=== PATIENT | female | born 1955 | race African-American/Black ===

== ENCOUNTER 2024-02-19 12:24 | Emergency (ER) | payer OTHER, SELFPAY ==
[2024-02-19] VITALS (11 sets, daily range): BP systolic 130–162; BP diastolic 66–98; PULSE 78–93; RESP 16–20; TEMP 36.6; O2SAT 98–100; BMI 34.3
--- NOTE | 2024-02-19 12:42 | DI.RAD.S_ITS ---
PROCEDURE: XR KNEE LT 3V INDICATIONS: fall with pain and unable to bear weight. TECHNIQUE: 3 views of the knee were acquired. COMPARISON: None. FINDINGS: Bones: Suggestion of a linear lucency through the medial tibial plateau noted with large joint effusion suggesting a nondisplaced fracture. Mild degenerative changes noted as well. IMPRESSION: Possible nondisplaced tibial plateau fracture and large joint effusion. Consider follow-up CT evaluation. Approved by: Fernando Gayle M.D. on 02/19/2024 at 12:58
--- NOTE | 2024-02-19 12:59 | DI.CT.S_ITS ---
PROCEDURE: CT HEAD/BRAIN WO CON INDICATIONS: fall on thinners TECHNIQUE: Noncontrast 4.5 mm thick angled axial sections acquired from the foramen magnum to the vertex, with coronal and sagittal reformats. For radiation dose reduction, the following was used: automated exposure control, adjustment of mA and/or kV according to patient size. COMPARISON: None. FINDINGS: Image quality: Diagnostic. CSF spaces: Basal cisterns are patent. No extra-axial fluid collections. Ventricles are normal in size and shape. Brain: No midline shift. No intracranial masses or hemorrhage. Hickman-white matter interface is normal. Ovoid 6 mm hypodensity in the right frontal subcortical white matter Skull and face: Calvarium and visualized facial bones are intact, without suspicious lesions. Sinuses: Visualized sinuses and mastoids are clear. IMPRESSION: No acute CT findings. No intracranial hemorrhage or mass effect. Incidental 6 mm ovoid hypodensity in the right frontal subcortical white matter is nonspecific but may reflect old white matter infarct, chronic ischemic change, neuroglial cyst. Consider nonemergent MR evaluation. Approved by: Fernando Gayle M.D. on 02/19/2024 at 13:01
--- NOTE | 2024-02-19 14:05 | ED_ITS ---
HPI - Fall General Chief Complaint: Fall Stated Complaint: GLF on thinners, Hit head Time Seen by Provider: 02/19/24 12:59 Source: patient and family Mode of arrival: Ambulatory Limitations: language barrier History of Present Illness HPI Narrative: Patient has a 68-year-old female. Is [place] speaking. His from the [facility]. Patient's daughter provided translation. Offer the translation line but family and patient was okay with the daughter providing translation. Last evening the patient had a mechanical fall where she did fall and hit her head. Was also having left knee pain. No loss of consciousness. She is on blood thinners. Has had difficulty with ambulating because of left knee pain since then. No other injuries from the event. Related Data Previous Rx's Medication Instructions Recorded hydrocodone 5 mg-acetaminophen 325 1 tab PO Q4-6H PRN pain #14 tabs 02/19/24 mg tablet Allergies Allergy/AdvReac Type Severity Reaction Status Date / Time No Known Drug Allergies Allergy Verified 02/19/24 12:42 Review of Systems Review of Systems Narrative: See HPI Patient History Social History Smoking Status: Never smoker Smoking Status: Never smoker Substance Use Type: does not use Exam Initial Vital Signs Initial Vital Signs: Vital Signs Temperature 97.9 F 02/19/24 12:33 Pulse Rate 89 02/19/24 12:33 Respiratory Rate 16 02/19/24 12:33 Blood Pressure 162/86 H 02/19/24 12:33 Pulse Oximetry 99 02/19/24 12:33 Oxygen Delivery Method Room Air 02/19/24 12:33 HENMT Head: normal to inspection and normocephalic Resp Effort & Inspection: normal respiratory effort Cardio Rate: regular rate Neuro General: patient alert and patient awake Extrem Other: Discomfort with palpation throughout the left knee. Effusion noted in the left knee. Procedures Orthopedic Splinting/Casting Injury #1: Side: left Lower Extremity Injury Location: knee Lower Extremity Immobilizer: knee immobilizer Other Orthopedic Equipment: crutches Post splinting neuro exam: intact Post splinting vascular exam: intact Placed by: Nursing Course Orders Ordered: ED Orders 02/19/24 12:42 XR knee LT 3V Stat 02/19/24 12:59 CT head/brain wo con Stat 02/19/24 14:07 CT LE LT wo con Stat Discontinued Medications Hydrocodone Bitart/Acetaminophen (Hydrocodone/Acet 5/325 Tablet) 1 tab PO NOW ONE Stop: 02/19/24 15:10 Last Admin: 02/19/24 15:21 Dose: 1 tab Documented By: MO Vital Signs Vital signs: Vital Signs - 8 hr 02/19/24 12:33 02/19/24 13:08 02/19/24 13:09 Temperature 97.9 F Pulse Rate 89 93 H 92 H Respiratory Rate 16 Blood Pressure 162/86 H Pulse Oximetry 99 99 99 Oxygen Delivery Method Room Air 02/19/24 13:09 02/19/24 13:15 02/19/24 13:15 Temperature Pulse Rate 87 Respiratory Rate Blood Pressure 146/78 H 141/82 H Pulse Oximetry 100 Oxygen Delivery Method 02/19/24 13:30 02/19/24 13:30 02/19/24 13:45 Temperature Pulse Rate 83 83 Respiratory Rate Blood Pressure 133/76 Pulse Oximetry 100 100 Oxygen Delivery Method 02/19/24 13:45 02/19/24 14:00 02/19/24 14:00 Temperature Pulse Rate 80 Respiratory Rate Blood Pressure 130/66 136/77 Pulse Oximetry 100 Oxygen Delivery Method 02/19/24 14:16 02/19/24 14:16 02/19/24 14:39 Temperature Pulse Rate 86 82 Respiratory Rate Blood Pressure 140/98 H Pulse Oximetry 100 98 Oxygen Delivery Method Room Air 02/19/24 14:40 02/19/24 14:40 Temperature Pulse Rate 83 Respiratory Rate Blood Pressure 143/79 H Pulse Oximetry 100 Oxygen Delivery Method MDM - Fall Imaging Data Extremity x-ray #1: Radiologist's Impression: PROCEDURE: XR KNEE LT 3V INDICATIONS: fall with pain and unable to bear weight. TECHNIQUE: 3 views of the knee were acquired. COMPARISON: None. FINDINGS: Bones: Suggestion of a linear lucency through the medial tibial plateau noted with large joint effusion suggesting a nondisplaced fracture. Mild degenerative changes noted as well. IMPRESSION: Possible nondisplaced tibial plateau fracture and large joint effusion. Consider follow-up CT evaluation. CT scan - head: Radiologist's Impression: PROCEDURE: CT HEAD/BRAIN WO CON INDICATIONS: fall on thinners TECHNIQUE: Noncontrast 4.5 mm thick angled axial sections acquired from the foramen magnum to the vertex, with coronal and sagittal reformats. For radiation dose reduction, the following was used: automated exposure control, adjustment of mA and/or kV according to patient size. COMPARISON: None. FINDINGS: Image quality: Diagnostic. CSF spaces: Basal cisterns are patent. No extra-axial fluid collections. Ventricles are normal in size and shape. Brain: No midline shift. No intracranial masses or hemorrhage. Hickman-white matter interface is normal. Ovoid 6 mm hypodensity in the right frontal subcortical white matter Skull and face: Calvarium and visualized facial bones are intact, without suspi cious lesions. Sinuses: Visualized sinuses and mastoids are clear. IMPRESSION: No acute CT findings. No intracranial hemorrhage or mass effect. Incidental 6 mm ovoid hypodensity in the right frontal subcortical white matter is nonspecific but may reflect old white matter infarct, chronic ischemic change, neuroglial cyst. Consider nonemergent MR evaluation. LE CT: Radiologist's Impression: PROCEDURE: CT LE LT W CON INDICATIONS: Possible tibial plateau fracture on x-ray TECHNIQUE: Noncontrast 1-1.5 mm axial sections acquired from the mid-patella to the proximal tibia, with coronal and sagittal reformats. COMPARISON: None. FINDINGS: Depressed tibial plateau fracture noted involving the posterolateral corner of the lateral tibial plateau associated large joint effusion without significant lipomatous component. Arthritic tricompartmental joint space narrowing with medial marginal osteophyte. Stippled calcification noted in the medial meniscus reflecting chondrocalcinosis. Musculature fascial planes maintained. Popliteal cyst noted. IMPRESSION: Depressed lateral tibial plateau fracture as above. Associated large joint effusion. MDM Narrative Medical decision making narrative: Head CT is unremarkable. CT scan of the lower extremity shows a tibial plateau fracture. I did discuss the case with Dr. Marti on-call with Orthopedic surgery who recommended placing in a brace, making nonweightbearing and following up as an outpatient. I did discuss this with the patient and her family. Her family did provide translation services. She had no questions at the end of the conversation. They were given return precautions and follow-up instructions. If 1 expressed understanding and agreement with plan. Discharge Plan Departure Patient Disposition: Home Clinical Impression: Closed fracture of tibial plateau Instructions: How to Use Crutches, How to Use a Knee Immobilizer, DI for Tibial Plateau Fracture Activity Restrictions/Additional Instructions: She should remain nonweightbearing which means not walking on her left leg. She will need to use the crutches where the wheelchair that you have at home. The knee immobilizer should be in place except for when she is sleeping at night or sitting. She does need follow-up with orthopedic surgery. Contact them tomorrow with the number provided below. Return to the emergency department for new or worsening symptoms. Prescriptions: New hydrocodone-acetaminophen 5-325 mg tablet 1 tab PO Q4-6H PRN (Reason: pain) Qty: 14 0RF Referrals: Gallito Marti MD [Physician] - Stand Alone Forms: Patient Portal/API
[2024-02-19] MEDS: HYDROCODONE/ACET 5/325 TABLET 1 TAB PO (15:21)
== END 2024-02-19 17:14 | disposition home or self-care (01) ==
PROVIDERS: Emergency Provider Emergency Medicine
DX: S82.142A Displaced bicondylar fracture of left tibia, initial encounter for closed fracture (principal); S09.90XA Unspecified injury of head, initial encounter; W18.30XA Fall on same level, unspecified, initial encounter; Z79.01 Long term (current) use of anticoagulants
CPT/HCPCS: 70450; 73562; 73700; 99283; 99284

== ENCOUNTER 2024-03-10 12:35 | Emergency (ER) | payer OTHER, SELFPAY ==
[2024-03-10 12:45] VITALS: BP 148/86; PULSE 91; RESP 18; TEMP 36.8; O2SAT 99; BMI 35.4
--- NOTE | 2024-03-10 12:52 | DI.RAD.S_ITS ---
PROCEDURE: XR TIBIA FIBULA LT 2V INDICATIONS: left knee fracture, now hot TECHNIQUE: 2 views of the tibia and fibula were acquired. COMPARISON: , CT, CT LE LT WO CON, 02/19/2024, 14:12. FINDINGS: Bones: Lateral posterior tibial plateau fracture is again visualized. No new fractures identified. No significant knee effusion. Mild soft tissue edema about the knee. the knee. Soft tissues: No suspicious soft tissue calcifications or masses. IMPRESSION: Unchanged appearance of lateral tibial plateau fracture. Dictated by: Carlyle Samaniego M.D. on 03/10/2024 at 12:25 Approved by: Carlyle Samaniego M.D. on 03/10/2024 at 12:27
--- NOTE | 2024-03-10 12:56 | DI.US.S_ITS ---
PROCEDURE: US PERIPH VENOUS LOW EXTREM LT INDICATIONS: PAIN POST FRACTURE TECHNIQUE: Real-time imaging, as well as color and pulse Doppler interrogation, were performed of the lower extremity deep veins from the inguinal ligament to the popliteal fossa, with documentation of the visualized calf veins. COMPARISON: None. FINDINGS: The common femoral, femoral, popliteal, and the visualized calf veins are normally compressible, and free of intraluminal thrombus. Color and pulse Doppler demonstrate normal phasic intraluminal flow. There is normal augmentation response to distal compression maneuver. Small Brown's cyst measuring 5.6 x 1.1 x 3.4 centimeters. IMPRESSION: No findings of lower extremity deep venous thrombosis. Popliteal cyst. Dictated by: Carlyle Samaniego M.D. on 03/10/2024 at 13:14 Approved by: Carlyle Samaniego M.D. on 03/10/2024 at 13:16
--- NOTE | 2024-03-10 15:09 | ED_ITS ---
HPI - Extremity Problem General Chief complaint: Extremity Problem,Nontraumatic Stated complaint: L Leg Discomfort Hot to the touch Time Seen by Provider: 03/10/24 12:56 Source: family Mode of arrival: Wheelchair History of Present Illness HPI Narrative: Patient is a healthy 68-year-old female who presents today with left leg pain and burning. She has a known tibial plateau fracture she has been placed in a knee immobilizer device but today reports that she is got some burning sensation medially. No rash or fever. 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 Daughter reports that she has been basically bedridden but getting up to shower and go to the bathroom only. They did see orthopedics who recommended no further recommendations other than the knee immobilizer crutches and no weight-bearing. She initially was seen here on Feb 19 2024 after falling. Related Data Previous Rx's Medication Instructions Recorded hydrocodone 5 mg-acetaminophen 325 1 tab PO Q4-6H PRN pain #14 tabs 02/19/24 mg tablet hydrocodone 5 mg-acetaminophen 325 1 tab PO Q4-6H PRN pain #20 tabs 02/20/24 mg tablet Allergies Allergy/AdvReac Type Severity Reaction Status Date / Time No Known Drug Allergies Allergy Verified 03/10/24 12:51 Patient History Social History Smoking Status: Never smoker Smoking Status: Never smoker Substance Use Type: does not use Exam Initial Vital Signs Initial Vital Signs: Vital Signs Temperature 98.2 F 03/10/24 12:45 Pulse Rate 91 H 03/10/24 12:45 Respiratory Rate 18 03/10/24 12:45 Blood Pressure 148/86 H 03/10/24 12:45 Pulse Oximetry 99 03/10/24 12:45 Oxygen Delivery Method Room Air 03/10/24 12:45 GENERAL: Alert pleasant 68-year-old female no acute distress CARDIOVASCULAR: peripheral pulses in tact, cap refill <2 sec RESPIRATORY: No respiratory distress, speaks in full sentences without difficulty EXTREMITIES: Normal range of motion, no clubbing or edema. Neurovascularly intact Left lower extremity mild knee pain knee immobilizer is removed there is no erythema distal pedal pulse intact no posterior knee pain NEUROLOGICAL: Cranial nerves II through XII grossly intact. Normal gait and speech. SKIN: Warm, dry, no petechiae, no rashes or lesions. Course Orders Ordered: ED Orders 03/10/24 12:52 XR tibia fibula LT 2V Stat 03/10/24 12:56 US periph venous low extrem lt Stat Vital Signs Vital signs: Vital Signs - 8 hr 03/10/24 12:45 Temperature 98.2 F Pulse Rate 91 H Respiratory Rate 18 Blood Pressure 148/86 H Pulse Oximetry 99 Oxygen Delivery Method Room Air MDM - Extremity (Nontraumatic) Imaging Data Extremity x-ray #1: Radiologist's Impression: PROCEDURE: XR TIBIA FIBULA LT 2V INDICATIONS: left knee fracture, now hot TECHNIQUE: 2 views of the tibia and fibula were acquired. COMPARISON: [facility], CT, CT LE LT WO CON, 02/19/2024, 14:12. FINDINGS: Bones: Lateral posterior tibial plateau fracture is again visualized. No new fractures identified. No significant knee effusion. Mild soft tissue edema about the knee. the knee. Soft tissues: No suspicious soft tissue calcifications or masses. IMPRESSION: Unchanged appearance of lateral tibial plateau fracture. Dictated by: Carlyle Samaniego M.D. on 03/10/2024 at 12:25 US - DVT: Radiologist's Impression: PROCEDURE: US PERIP VENOUS LOW EXTREM LT INDICATIONS: PAIN POST FRACTURE TECHNIQUE: Real-time imaging, as well as color and pulse Doppler interrogation, were performed of the lower extremity deep veins from the inguinal ligament to the popliteal fossa, with documentation of the visualized calf veins. COMPARISON: None. FINDINGS: The common femoral, femoral, popliteal, and the visualized calf veins are normally compressible, and free of intraluminal thrombus. Color and pulse Doppler demonstrate normal phasic intraluminal flow. There is normal augmentation response to distal compression maneuver. Small Brown's cyst measuring 5.6 x 1.1 x 3.4 centimeters. IMPRESSION: No findings of lower extremity deep venous thrombosis. Popliteal cyst. Dictated by: Carlyle Samaniego M.D. on 03/10/2024 at 13:14 Approved by: Carlyle Samaniego M.D. on 03/10/2024 at 13:16 [facility] Narrative Medical decision making narrative: Patient well-appearing 68-year-old female presents today with increase left knee burning sensation. There is no evidence of cellulitis or infection. Ultrasound is negative for DVT x-ray does appear to have a healing fracture. At this time continue with supportive care. There is a small Brown cyst but I think unlikely causing her pain today. Daughter reports that patient pain is very well-controlled at home and she does not really need anything further. I encouraged her to get up and move around to help prevent DVT Discharge Plan Departure Patient Disposition: Home Clinical Impression: Brown cyst Instructions: DI for Brown Cyst Activity Restrictions/Additional Instructions: *You have been diagnosed with Brown's cyst *What to do: At this time healing bone, no evidence of DVT or infection. Encourage getting up and moving around much as tolerated but not too much. Elevation and ice as well. *Continue to take medications as directed *Follow up with your primary care provider in 2-3 days or call [phone] *Return to ER if you should have increasing pain swelling redness fever or any new, worsening or concerning symptoms Prescriptions: No Action hydrocodone-acetaminophen 5-325 mg tablet 1 tab PO Q4-6H PRN (Reason: pain) Qty: 14 0RF hydrocodone-acetaminophen 5-325 mg tablet 1 tab PO Q4-6H PRN (Reason: pain) Qty: 20 0RF Stand Alone Forms: Patient Portal/API
== END 2024-03-10 15:29 | disposition home or self-care (01) ==
PROVIDERS: Emergency Provider Emergency Medicine
DX: M71.22 Synovial cyst of popliteal space [Baker], left knee (principal)
CPT/HCPCS: 73590; 93971; 99281; 99282